=== PATIENT | female | born 2000 | race Caucasian/White ===

== ENCOUNTER 2019-06-07 14:48 | Emergency (ER) | payer OTHER, BC ==
[~2019-06-07] VITALS: Ht 162.6 cm; Wt 68.0 kg
[2019-06-07 14:52] VITALS: BP 129/63
--- NOTE | 2019-06-07 14:55 | NUR ---
Pt ambulated back to lobby. Awaiting for bed availability.
--- NOTE | 2019-06-07 15:22 | NUR ---
PT AMBULATED TO BED 03.
--- NOTE | 2019-06-07 15:30 | NUR ---
Cough, sore throat, right sided ear pain x 3 days. Vomit x1. pt awake ,alert,afebrile, ambulatory with steady gait.sce ,cbs. slight congestion on tonsils. Allergies: NKA Med hx: none
--- NOTE | 2019-06-07 15:40 | NUR ---
fay stein at bedside evaluating pt.
--- NOTE | 2019-06-07 16:00 | NUR ---
Patient discharged with v/s stable. Written and verbal after care instructions given and explained upper respiratory infection. Patient alert, oriented and verbalized understanding of instructions. Ambulatory with steady gait. All questions addressed prior to discharge. ID band removed. Patient advised to follow up with PMD. Rx of ibrofen, cepacol and promethazine given. Patient educated on indication of medication including possible reaction and side effects. Opportunity to ask questions provided and answered.Excuse from work given.
[2019-06-07 16:02] VITALS: BP 129/63
== END 2019-06-07 16:00 | disposition home or self-care (01) ==
LOC: MED 14:48
DX: J06.9 Acute upper respiratory infection, unspecified (principal)
CPT/HCPCS: 81025; 99283